=== PATIENT | male | born 1960 | race Caucasian/White ===

== ENCOUNTER 2022-06-05 13:57 | Inpatient (IN) | payer BC ==
[2022-06-05] MEDS ORDERED: Sodium Chloride 0.9% 10 ML Syringe FLUSH PRN (14:26)
[2022-06-05] MEDS ORDERED: Albuterol/Ipratropium 3.0-0.5 MG/3 ML Neb Soln NEB ONE (14:26)
[2022-06-05] MEDS ORDERED: REMDESIVIR 200 MG in Sodium Chloride 0.9% 250 ML IV ONE (16:07)
[2022-06-05] MEDS ORDERED: Docusate Sodium 100 MG Cap PO PRN (16:36)
[2022-06-05] MEDS ORDERED: Acetaminophen 325 MG Tab PO PRN (16:36)
[2022-06-05] MEDS ORDERED: Morphine 2 MG/ML SYRINGE IVPUSH PRN (16:36)
[2022-06-05] MEDS ORDERED: Temazepam 15 MG Cap PO PRN (16:36)
[2022-06-05] MEDS ORDERED: oxyCODONE 5 MG Tab PO PRN (16:36)
[2022-06-05] MEDS ORDERED: Ondansetron 4 MG Tab.DIS PO PRN (16:36)
[2022-06-05] MEDS: Azithromycin 500 MG in Sodium Chloride 0.9% 250 ML IV SCH (17:52)
[2022-06-05] MEDS: Albuterol/Ipratropium 3.0-0.5 MG/3 ML Neb Soln NEB PRN (21:45)
[2022-06-06] MEDS: Albuterol/Ipratropium 3.0-0.5 MG/3 ML Neb Soln NEB PRN (06:27)
[2022-06-06] MEDS: Dexamethasone 6 MG TABLET PO SCH (08:23)
[2022-06-06] MEDS: Enoxaparin 40 MG/0.4 ML Syringe SUBCUT SCH (08:23)
[2022-06-06] MEDS ORDERED: Magnesium Sulfate/Water 2 GM in Premix Bag 1 BAG IV ONE (08:53)
[2022-06-06] MEDS: atorvaSTATin 20 MG Tab PO SCH (09:58)
[2022-06-06] MEDS: Finasteride 5 MG Tab PO SCH (09:59)
[2022-06-06] MEDS: Nicotine 14 MG/24 Hr Patch TRDERM SCH (09:59)
[2022-06-06] MEDS: Tiotropium BR/Olodaterol HCL 4 GM Inhalation Spray 2.5mcg/1 dose; 10 doses INH SCH (11:18)
[2022-06-06] MEDS ORDERED: Albuterol 0.083% 2.5 MG/3 ML Neb Soln NEB PRN (12:05)
[2022-06-06] MEDS ORDERED: REMDESIVIR 200 MG in Sodium Chloride 0.9% 250 ML IV ONE (13:00)
[2022-06-06] MEDS: guaiFENesin/Dextromethorphan 100-10 MG/5 ML Soln 5 ML Cup PO SCH ×2 (13:46→20:30)
[2022-06-06] MEDS ORDERED: REMDESIVIR 100 MG in Sodium Chloride 0.9% 250 ML IV SCH (14:00)
[2022-06-06] MEDS: Albuterol/Ipratropium 3.0-0.5 MG/3 ML Neb Soln NEB SCH ×2 (14:59→20:23)
[2022-06-06] MEDS: Azithromycin 500 MG in Sodium Chloride 0.9% 250 ML IV SCH (17:20)
[2022-06-07] MEDS: Albuterol/Ipratropium 3.0-0.5 MG/3 ML Neb Soln NEB SCH ×4 (02:21→21:36)
[2022-06-07] MEDS: guaiFENesin/Dextromethorphan 100-10 MG/5 ML Soln 5 ML Cup PO SCH ×3 (06:01→20:36)
[2022-06-07] MEDS ORDERED: Sodium Chloride 0.9% 10 ML Syringe FLUSH ONE (07:53)
[2022-06-07] MEDS ORDERED: Iopamidol 755 Mg/ML 100 ML Bottle IVPUSH ONE (07:53)
[2022-06-07] MEDS ORDERED: Sodium Chloride 0.9% 100 ML IV SCH (08:00)
[2022-06-07] MEDS: Cholecalciferol (Vitamin D3) 25 MCG Tab PO SCH (08:34)
[2022-06-07] MEDS: Enoxaparin 40 MG/0.4 ML Syringe SUBCUT SCH (08:34)
[2022-06-07] MEDS: Finasteride 5 MG Tab PO SCH (08:34)
[2022-06-07] MEDS: Dexamethasone 6 MG TABLET PO SCH (08:34)
[2022-06-07] MEDS: Nicotine 14 MG/24 Hr Patch TRDERM SCH (08:35)
[2022-06-07] MEDS: atorvaSTATin 20 MG Tab PO SCH (08:35)
[2022-06-07] MEDS: Tiotropium BR/Olodaterol HCL 4 GM Inhalation Spray 2.5mcg/1 dose; 10 doses INH SCH (08:47)
[2022-06-07] MEDS: REMDESIVIR 100 MG in Sodium Chloride 0.9% 250 ML IV SCH (13:22)
[2022-06-07] MEDS ORDERED: MAGNESIUM GLYCINATE PO PRN (15:48)
[2022-06-07] MEDS: Azithromycin 500 MG in Sodium Chloride 0.9% 250 ML IV SCH (16:11)
[2022-06-07] MEDS: MAGNESIUM GLYCINATE PO PRN (20:38)
[2022-06-08] MEDS: Albuterol/Ipratropium 3.0-0.5 MG/3 ML Neb Soln NEB SCH ×4 (02:52→21:44)
[2022-06-08] MEDS: guaiFENesin/Dextromethorphan 100-10 MG/5 ML Soln 5 ML Cup PO SCH ×5 (06:01→20:31)
[2022-06-08] MEDS ORDERED: Magnesium Sulfate/Water 4 GM in Premix Bag 1 BAG IV ONE (07:01)
[2022-06-08] MEDS: Nicotine 14 MG/24 Hr Patch TRDERM SCH (08:05)
[2022-06-08] MEDS: Cholecalciferol (Vitamin D3) 25 MCG Tab PO SCH (08:05)
[2022-06-08] MEDS: Enoxaparin 40 MG/0.4 ML Syringe SUBCUT SCH (08:05)
[2022-06-08] MEDS: Finasteride 5 MG Tab PO SCH (08:05)
[2022-06-08] MEDS: atorvaSTATin 20 MG Tab PO SCH (08:05)
[2022-06-08] MEDS: Dexamethasone 6 MG TABLET PO SCH (08:05)
[2022-06-08] MEDS: Tiotropium BR/Olodaterol HCL 4 GM Inhalation Spray 2.5mcg/1 dose; 10 doses INH SCH (08:18)
[2022-06-08] MEDS: REMDESIVIR 100 MG in Sodium Chloride 0.9% 250 ML IV SCH (13:05)
[2022-06-08] MEDS: MAGNESIUM GLYCINATE PO PRN (19:59)
[2022-06-09] MEDS: Albuterol/Ipratropium 3.0-0.5 MG/3 ML Neb Soln NEB SCH ×4 (06:25→20:19)
[2022-06-09] MEDS: guaiFENesin/Dextromethorphan 100-10 MG/5 ML Soln 5 ML Cup PO SCH ×3 (06:40→21:10)
[2022-06-09] MEDS: Tiotropium BR/Olodaterol HCL 4 GM Inhalation Spray 2.5mcg/1 dose; 10 doses INH SCH (09:00)
[2022-06-09] MEDS: Cholecalciferol (Vitamin D3) 25 MCG Tab PO SCH (09:39)
[2022-06-09] MEDS: Dexamethasone 6 MG TABLET PO SCH (09:39)
[2022-06-09] MEDS: Finasteride 5 MG Tab PO SCH (09:39)
[2022-06-09] MEDS: Enoxaparin 40 MG/0.4 ML Syringe SUBCUT SCH (09:40)
[2022-06-09] MEDS: Nicotine 14 MG/24 Hr Patch TRDERM SCH (09:40)
[2022-06-09] MEDS: atorvaSTATin 20 MG Tab PO SCH (09:40)
[2022-06-09] MEDS: REMDESIVIR 100 MG in Sodium Chloride 0.9% 250 ML IV SCH (13:58)
[2022-06-09] MEDS: MAGNESIUM GLYCINATE PO PRN (21:11)
[2022-06-10] MEDS: Albuterol/Ipratropium 3.0-0.5 MG/3 ML Neb Soln NEB SCH ×2 (05:51→09:03)
[2022-06-10 06:08] LABS: ESTIMATED GFR 109 mL/min (>60)
[2022-06-10] MEDS: guaiFENesin/Dextromethorphan 100-10 MG/5 ML Soln 5 ML Cup PO SCH (07:40)
[2022-06-10] MEDS ORDERED: Magnesium Sulfate/Water 2 GM in Premix Bag 1 BAG IV ONE (07:55)
[2022-06-10] MEDS: Finasteride 5 MG Tab PO SCH (08:36)
[2022-06-10] MEDS: Dexamethasone 6 MG TABLET PO SCH (08:36)
[2022-06-10] MEDS: Cholecalciferol (Vitamin D3) 25 MCG Tab PO SCH (08:36)
[2022-06-10] MEDS: atorvaSTATin 20 MG Tab PO SCH (08:36)
[2022-06-10] MEDS: Enoxaparin 40 MG/0.4 ML Syringe SUBCUT SCH (08:37)
[2022-06-10] MEDS: Nicotine 14 MG/24 Hr Patch TRDERM SCH (08:38)
[2022-06-10] MEDS: Tiotropium BR/Olodaterol HCL 4 GM Inhalation Spray 2.5mcg/1 dose; 10 doses INH SCH (08:58)
[2022-06-10] MEDS: REMDESIVIR 100 MG in Sodium Chloride 0.9% 250 ML IV SCH ×2 (11:12→12:56)
== END 2022-06-10 13:47 | disposition home or self-care (01) | DRG 137 ==
LOC: JD.ED 13:57 → JD.MS 16:29
PROVIDERS: ADMIT Internal Medicine; ATTEND Internal Medicine
PROC: XW033E5 Introduction of Remdesivir Anti-infective into Peripheral Vein, Percutaneous Approach, New Technology Group 5 (ICD-10-PCS; principal; 2022-06-06)
PROC: 8E0ZXY6 Isolation (ICD-10-PCS; 2022-06-06)
PROC: 3E0DX3Z Introduction of Anti-inflammatory into Mouth and Pharynx, External Approach (ICD-10-PCS; 2022-06-10)
DX: U07.1 COVID-19 (principal); J96.01 Acute respiratory failure with hypoxia; J43.9 Emphysema, unspecified; F17.200 Nicotine dependence, unspecified, uncomplicated
CPT/HCPCS: 36415; 71045; 71045-26; 71275; 71275-26; 80048; 80053; 82103; 82104; 82306; 83735; 84145; 85025; 85379; 86140; 94640; 94667; 94668; 94760; 94761; 99285; A9270-GY; J0248; J0456; J1650; J3475; J3490; J7050; J7620-GY; J8540; Q9967

== ENCOUNTER 2024-02-21 08:59 | Day surgery (SDC) | payer BC ==
[~2024-02-21 08:59] MED LIST: Sodium Chloride 0.9% 10 ML Syringe FLUSH PRN; Sodium Chloride 0.9% 10 ML Syringe FLUSH SCH
[2024-02-21] MEDS: Lactated Ringers 1,000 ML IV SCH (09:30)
[2024-02-21] MEDS ORDERED: fentaNYL 100 MCG/2 ML SDV IVPUSH PRN (09:43)
[2024-02-21] MEDS ORDERED: Ondansetron 4 MG/2 ML SDV IVPUSH PRN (09:43)
[2024-02-21] MEDS ORDERED: Midazolam 1 MG/ML 2 ML SDV ONE (10:07)
[2024-02-21] MEDS ORDERED: Propofol 200 MG/20 ML SDV ONE ×4 (10:07→10:10)
== END 2024-02-21 12:26 | disposition home or self-care (01) ==
LOC: JD.SDS 08:59
PROVIDERS: ATTEND Surgery
DX: Z12.11 Encounter for screening for malignant neoplasm of colon (principal); D12.3 Benign neoplasm of transverse colon; D12.0 Benign neoplasm of cecum; K57.30 Diverticulosis of large intestine without perforation or abscess without bleeding; K64.8 Other hemorrhoids; Z80.0 Family history of malignant neoplasm of digestive organs; E78.5 Hyperlipidemia, unspecified; I25.10 Atherosclerotic heart disease of native coronary artery without angina pectoris; J44.9 Chronic obstructive pulmonary disease, unspecified; Z95.1 Presence of aortocoronary bypass graft; Z87.891 Personal history of nicotine dependence; Z79.899 Other long term (current) drug therapy
CPT/HCPCS: 45380; J2250; J2704; J7120; 00811